=== PATIENT | female | born 1985 | race Hispanic/Latino ===

== ENCOUNTER 2025-06-11 22:32 | Emergency (ER) | payer SELFPAY ==
[~2025-06-11] VITALS: Ht 167.6 cm; Wt 99.8 kg
[2025-06-11 23:53] LABS: LEUKOCYTE ESTERASE ,URINE NEGATIVE (NEGATIVE); PROTEIN,URINE DIPSTICK 2+ (NEGATIVE)
[2025-06-11 23:55] LABS: AMPHETAMINES SCREEN,URINE NEGATIVE (NEGATIVE); CANNABINOIDS SCREEN,URINE NEGATIVE (NEGATIVE); COCAINE SCREEN,URINE NEGATIVE (NEGATIVE); METHADONE SCREEN, URINE NEGATIVE (NEGATIVE); OPIATES SCREEN,URINE POSITIVE (NEGATIVE); URINE UROBILINOGEN 1 mg/dL (0.2 - 1)
[2025-06-11 23:56] LABS: PREGNANCY TEST, URINE NEGATIVE (NEGATIVE)
[2025-06-12 00:47] LABS: EPITHELIAL CELLS,URINE MODERATE /LPF
[2025-06-12] MEDS ORDERED: PYRIDIUM200 MG PO (01:46)
[2025-06-12 02:00] VITALS: PULSE 64; RESP 15; TEMP 98.2; O2SAT 100
== END 2025-06-12 02:00 | disposition home or self-care (01) ==
LOC: ER 22:33
DX: T83.031A Leakage of indwelling urethral catheter, initial encounter (principal); N32.89 Other specified disorders of bladder
CPT/HCPCS: 74176; 80307; 81001; 81025; 99283